=== PATIENT | male | born 1975 | race Caucasian/White ===

== ENCOUNTER 2021-06-16 09:39 | Outpatient (CLI) | payer BC, SELFPAY ==
--- NOTE | 2021-06-16 09:47 | ECG_ITS ---
Measurements Intervals [place] Rate: 61 P: 51 [place]: 165 QRS: -7 QRSD: 104 T: 20 QT: 381 QTc: 386 Interpretive Statements SINUS RHYTHM WITH SINUS ARRHYTHMIA INCOMPLETE RIGHT BUNDLE BRANCH BLOCK BORDERLINE ECG Electronically Signed On 06-16-2021 16:36:13 MENTAL RETARDATION AIDE by Ian Briscoe D.O.
== END 2021-06-16 09:40 | disposition home or self-care (01) ==
LOC: ANHSURGERY 09:43
PROVIDERS: PCP Family Medicine; Visit Provider Surgery
DX: Z01.810 Encounter for preprocedural cardiovascular examination (principal); E78.00 Pure hypercholesterolemia, unspecified; I45.10 Unspecified right bundle-branch block
CPT/HCPCS: 93005

== ENCOUNTER 2021-06-21 00:17 | Day surgery (SDC) | payer BC, SELFPAY ==
[2021-06-13 16:47] VITALS: BMI 33.3
--- NOTE | 2021-06-13 17:02 | SUR.PREOP ---
Report to the Outpatient Waiting Room, entrance under the green pavilion located off [facility], at time ___1100____ on date 06/21/2021. OR Time: ____1300____. - You and your visitor will be asked a series of questions to screen for COVID 19 for your protection. - A mask is required within the hospital. - Only one visitor is allowed at this time. Patient visitors will be guided where to wait when not with patient. Preoperative COVID Testing Requirements: No COVID Test needed if: (proof is required; if not received patient will have Rapid Test prior to entry) - Patient has received COVID Vaccine at least 14 days prior to procedure date or - Patient has positive COVID test result within last 90 days of surgery date. COVID Test needed if above criteria is not met If not COVID vaccinated a COVID test must be conducted within 72 hours of surgery and patient is asked to isolate self from time of testing until procedure. You will go to the [facility] Testing [facility] for your COVID testing. The [employer] [facility] Testing site is located at the corner of [address] [facility]. You will only be called if COVID results are positive and your surgeon may reschedule your elective surgery date. Patients may have clear liquids (water, carbonated beverages, clear teas, apple juice) until 3 hours prior to surgery (1000) with a maximum of 20 ounces. - No food from midnight until time of surgery - Infants may have breast milk until 4 hours before surgery, formula 6 hours prior to surgery. - Children will be allowed to drink immediately following surgery. If applicable, please bring a bottle or sippy cup to assist with drinking. Juice, water, soda, and popsicles are readily available. For infants on formula, please bring formula the day of surgery. Pacifiers are allowed. Take the following medications with a SIP of water the morning of surgery: NA Medications to discontinue per physician: Follow guidelines from Dr. Johns for Aspirin 81MG. Date to take last dose: 06/18/2021 HOLD multivitamin Please no make-up, nail luxembourger, hairspray, perfume, deodorant, or body powder the day of surgery. No jewelry (including any body piercings) or valuables the day of surgery, leave them at home. Please take a shower or bath the night before, or the morning of, surgery with an antibacterial soap-HIBICLENS. Wear comfortable, loose fitting clothing. Children are encouraged to wear pajamas. - Jewelry must be removed prior to entering the operating room. Rings and piercings that are not removed may be cut off. - The hospital will not accept responsibility for valuables. - Please leave all valuables, including medications, at home the day of surgery. If you are going home after surgery, a licensed frontload driver must drive you home. - NO public transportation without another adult. - We recommend that an adult stay with you for 24 hours following discharge. - We also recommend that you do not drive, make important decision, drink alcoholic beverages, or take any drugs that were not prescribed by your health care provider for at least 24 hours after your discharge time. For Pediatric surgeries, we recommend two adults accompany the child home (only one inside the building at this time). Follow any additional instructions given to you from your surgeon. Telephone instructions given to ____patient and asked if any additional questions and then verbalized understanding. Patient advised to call surgeon office or pre surgery nurse liaison [phone] if any additional questions.
[2021-06-21 10:56] VITALS: BP 123/78; PULSE 69; RESP 20; TEMP 36.7; O2SAT 100
[2021-06-21] MEDS: LACTATED RINGERS 1,000 ML 30 ML IV CONT (11:20)
[2021-06-21] MEDS: ACETAMINOPHEN 500 MG TABLET 1000 MG PO (11:42)
[2021-06-21] MEDS: KETOROLAC 15 MG/ML VIAL (*BKC) IV PUSH (11:44)
--- NOTE | 2021-06-21 11:46 | WPDANESEPPF ---
Anes - Initial Pre Proc Eval Procedure: Operation Date: 06/21/21 13:30 Proposed Procedures p Open Left Inguinal Hernia Repair with Mesh - Eloy Johns MD Date/Time: 06/21/21 11:46 Surgeon: Eloy Johns MD Pre Op Diagnosis: Left Ing Hernia Patient Data Age: 46 Gender: M Height: 1.75 m Weight: 102.2 kg Allergies Allergy/AdvReac Type Severity Reaction Status Date / Time Penicillins AdvReac Intermediate Abdominal Verified 06/21/21 11:10 Pain Home Medications Medication Instructions Recorded Confirmed Type aspirin 81 mg capsule 81 mg PO DAILY 05/30/21 06/13/21 History multivitamin 1 tablet PO DAILY 05/30/21 06/13/21 History rosuvastatin 40 mg tablet 40 mg PO DAILY 05/30/21 06/13/21 History Patient hx anesthesia problems: none Family hx anesthesia problems: none Results Review: All pre-operative results and documents have been reviewed as part of the pre-operative evaluation. [facility] Past Medical History Medical History (Updated 06/01/21 @ 08:43 by Hali Rivas) Asthma High cholesterol Kidney stones Surgical History Surgical History History of back surgery History of vasectomy Family History Family History Father Diabetes mellitus Mother Heart disease Brain cancer Grandparent Hypertension Social History Social History Smoking packs per day: 0.75 Smoking cigarettes per day: 15.0 Years smoked: 13 Smoking pack-years: 9.75 Smoking status: Former smoker Tobacco type: cigarettes Smokeless tobacco user: chewing tobacco and snuff Alcohol intake: never Substance use: never Living arrangements: with family Additional occupation/education comments: [employer] Spiritual care concerns: No Anes - Eval Final PreProcedure Day of Procedure 06/21/21 11:46 Patient weight: obese Heart: regular rate and rhythm Lungs: clear to auscultation Airway: Mallampati scale class II Neurological: alert and oriented Last oral intake: >/= 8 hours ASA classification: II Emergent: no Anesthetic plan: proceed Anesthesia type and monitoring: general LMA and standard monitoring Results Review: All pre-operative results and documents have been reviewed as part of the pre-operative evaluation. Informed Consent: The patient's anesthetic plan and its attendant risks and benefits were discussed with the patient/family/POA. Questions were solicited and answers provided to the satisfaction of the patient/family/POA.
--- NOTE | 2021-06-21 12:39 | SUR.PREOP ---
1225-PT AND VISITOR AWARE SURGEON DELAYS SELF WITH PREVIOUS SURGERY-MINIMUM 80 MINUTES.
--- NOTE | 2021-06-21 15:18 | SUR.PREOP ---
1340-SURGERY CANCELLED R/T SURGEON DELAY.
== END 2021-06-21 13:55 | disposition home or self-care (01) ==
PROVIDERS: PCP Family Medicine; Visit Provider Surgery
DX: K40.90 Unilateral inguinal hernia, without obstruction or gangrene, not specified as recurrent (principal); Z53.8 Procedure and treatment not carried out for other reasons
CPT/HCPCS: 99213; A9270; G0463; J1885; J7120

== ENCOUNTER 2021-06-23 03:00 | Day surgery (SDC) | payer BC, SELFPAY ==
--- NOTE | 2021-06-21 13:52 | PC.NURSE ---
Report to the Outpatient Waiting Room, entrance under the green pavilion located off [facility], at time __10:30AM on date _06/21/21 . OR Time: __12:30PM . - You and your visitor will be asked a series of questions to screen for COVID 19 for your protection. - A mask is required within the hospital. - Only one visitor is allowed at this time. Patient visitors will be guided where to wait when not with patient. Preoperative COVID Testing Requirements: No COVID Test needed if: (proof is required; if not received patient will have Rapid Test prior to entry) - Patient has received COVID Vaccine at least 14 days prior to procedure date or - Patient has positive COVID test result within last 90 days of surgery date. COVID Test needed if above criteria is not met If not COVID vaccinated a COVID test must be conducted within 72 hours of surgery and patient is asked to isolate self from time of testing until procedure. You will go to the [facility] for your COVID testing. The [facility] site is located at the corner of [address] from [facility]. You will only be called if COVID results are positive and your surgeon may reschedule your elective surgery date. Patients may have clear liquids (water, carbonated beverages, clear teas, apple juice) until 3 hours prior to surgery with a maximum of 20 ounces. - No food from midnight until time of surgery - Infants may have breast milk until 4 hours before surgery, infant formula 6 hours prior to surgery. - Children will be allowed to drink immediately following surgery. If applicable, please bring a bottle or sippy cup to assist with drinking. Juice, water, soda, and popsicles are readily available. For infants on formula, please bring formula the day of surgery. Pacifiers are allowed. Take the following medications with a SIP of water the morning of surgery: __NONE Medications to discontinue per physician ALL VITAMINS/SUPPLEMENTS 3 DAYS PRE-OP Date to take last dose Please no make-up, nail yi, hairspray, perfume, deodorant, or body powder the day of surgery. No jewelry (including any body piercings) or valuables the day of surgery, leave them at home. Please take a shower or bath the night before, or the morning of, surgery with an antibacterial soap. Wear comfortable, loose fitting clothing. Children are encouraged to wear pajamas. - Jewelry must be removed prior to entering the operating room. Rings and piercings that are not removed may be cut off. - The hospital will not accept responsibility for valuables. - Please leave all valuables, including medications, at home the day of surgery. If you are going home after surgery, a licensed goat driver must drive you home. - NO public transportation without another adult. - We recommend that an adult stay with you for 24 hours following discharge. - We also recommend that you do not drive, make important decision, drink alcoholic beverages, or take any drugs that were not prescribed by your health care provider for at least 24 hours after your discharge time. For Pediatric surgeries, we recommend two adults accompany the child home (only one inside the building at this time). Follow any additional instructions given to you from your surgeon. Telephone instructions given to __PATIENT and asked if any additional questions and then verbalized understanding. Patient advised to call surgeon office or pre surgery nurse liaison [phone] if any additional questions.
--- NOTE | 2021-06-21 13:58 | PC.NURSE ---
PATIENT CANCELED TODAY, 06/21/21, DATE/TIME CHANGE TO 06/23/21, 1230. CANCEL R/T OR DELAYS ON 06/21/21. NO CHANGE IN PMH. ALLERGIES AND MEDS CONFIRMED. PRE-OP INSTRUCTIONS GIVEN TO PT AND IN PERSON & IN WRITING, THEY RELAY UNDERSTANDING.
[2021-06-23] VITALS (8 sets, daily range): BP systolic 104–123; BP diastolic 63–79; PULSE 53–79; RESP 12–20; TEMP 36.3–36.6; O2SAT 94–99; BMI 33.3
[2021-06-23] MEDS: ACETAMINOPHEN 500 MG TABLET 1000 MG PO (11:08)
[2021-06-23] MEDS: LACTATED RINGERS 1,000 ML 30 ML IV CONT ×2 (11:15→14:52)
[2021-06-23] MEDS: KETOROLAC 15 MG/ML VIAL (*BKC) IV PUSH (11:25)
--- NOTE | 2021-06-23 11:56 | P.PNAN_ITS ---
Anes - Initial Pre Proc Eval Procedure: Operation Date: 06/23/21 12:30 Proposed Procedures p Open Left Inguinal Hernia Repair with Mesh - Eloy Johns MD Date/Time: 06/23/21 11:56 Surgeon: Eloy Johns MD Pre Op Diagnosis: left inguinal hernia Patient Data Age: 46 Gender: M Height: 1.75 m Weight: 102.2 kg Last Vital Signs Temp 97.8 F 06/23/21 10:29 Pulse 64 06/23/21 10:29 Resp 20 06/23/21 10:29 BP 116/79 06/23/21 10:29 Pulse Ox 99 06/23/21 10:29 Allergies Allergy/AdvReac Type Severity Reaction Status Date / Time Penicillins AdvReac Intermediate Abdominal Verified 06/21/21 11:10 Pain Home Medications Medication Instructions Recorded Confirmed Type aspirin 81 mg capsule 81 mg PO DAILY 05/30/21 06/23/21 History multivitamin 1 tablet PO DAILY 05/30/21 06/23/21 History rosuvastatin 40 mg tablet 40 mg PO DAILY 05/30/21 06/23/21 History Patient hx anesthesia problems: none Family hx anesthesia problems: none Results Review: All pre-operative results and documents have been reviewed as part of the pre-operative evaluation. [facility] Past Medical History Medical History (Updated 06/01/21 @ 08:43 by Hali Rivas) Asthma High cholesterol Kidney stones Surgical History Surgical History History of back surgery History of vasectomy Family History Family History Father Diabetes mellitus Mother Heart disease Brain cancer Grandparent Hypertension Social History Social History Smoking packs per day: 0.75 Smoking cigarettes per day: 15.0 Years smoked: 13 Smoking pack-years: 9.75 Smoking status: Former smoker Tobacco type: cigarettes Smokeless tobacco user: chewing tobacco and snuff Alcohol intake: never Substance use: never Additional occupation/education comments: [employer] Spiritual care concerns: No Anes - Eval Final PreProcedure Day of Procedure 06/23/21 11:56 Patient weight: obese Heart: regular rate and rhythm Lungs: clear to auscultation Airway: Mallampati scale class II Neurological: alert and oriented Last oral intake: >/= 8 hours ASA classification: II Emergent: no Anesthetic plan: proceed Anesthesia type and monitoring: general LMA and standard monitoring Results Review: All pre-operative results and documents have been reviewed as part of the pre-operative evaluation. Informed Consent: The patient's anesthetic plan and its attendant risks and benefits were discussed with the patient/family/POA. Questions were solicited and answers provided to the satisfaction of the patient/family/POA.
--- NOTE | 2021-06-23 11:59 | WPDANESEPPF ---
Anes - Initial Pre Proc Eval Procedure: Operation Date: 06/23/21 12:30 Proposed Procedures p Open Left Inguinal Hernia Repair with Mesh - Eloy Johns MD Date/Time: 06/23/21 11:59 Surgeon: Eloy Johns MD Pre Op Diagnosis: left inguinal hernia Patient Data Age: 46 Gender: M Height: 1.75 m Weight: 102.2 kg Last Vital Signs Temp 97.8 F 06/23/21 10:29 Pulse 64 06/23/21 10:29 Resp 20 06/23/21 10:29 BP 116/79 06/23/21 10:29 Pulse Ox 99 06/23/21 10:29 Allergies Allergy/AdvReac Type Severity Reaction Status Date / Time Penicillins AdvReac Intermediate Abdominal Verified 06/21/21 11:10 Pain Home Medications Medication Instructions Recorded Confirmed Type aspirin 81 mg capsule 81 mg PO DAILY 05/30/21 06/23/21 History multivitamin 1 tablet PO DAILY 05/30/21 06/23/21 History rosuvastatin 40 mg tablet 40 mg PO DAILY 05/30/21 06/23/21 History Patient hx anesthesia problems: none Family hx anesthesia problems: none Results Review: All pre-operative results and documents have been reviewed as part of the pre-operative evaluation. [facility] Past Medical History Medical History (Updated 06/01/21 @ 08:43 by Hali Rivas) Asthma High cholesterol Kidney stones Surgical History Surgical History History of back surgery History of vasectomy Family History Family History Father Diabetes mellitus Mother Heart disease Brain cancer Grandparent Hypertension Social History Social History Smoking packs per day: 0.75 Smoking cigarettes per day: 15.0 Years smoked: 13 Smoking pack-years: 9.75 Smoking status: Former smoker Tobacco type: cigarettes Smokeless tobacco user: chewing tobacco and snuff Alcohol intake: never Substance use: never Additional occupation/education comments: [employer] Spiritual care concerns: No Anes - Eval Final PreProcedure Day of Procedure 06/23/21 11:59 Patient weight: obese Heart: regular rate and rhythm Lungs: clear to auscultation Airway: Mallampati scale class II Neurological: alert and oriented Last oral intake: >/= 8 hours ASA classification: II Emergent: no Anesthetic plan: proceed Anesthesia type and monitoring: general LMA and standard monitoring Results Review: All pre-operative results and documents have been reviewed as part of the pre-operative evaluation. Informed Consent: The patient's anesthetic plan and its attendant risks and benefits were discussed with the patient/family/POA. Questions were solicited and answers provided to the satisfaction of the patient/family/POA.
--- NOTE | 2021-06-23 12:29 | WPDHPUPDATE1 ---
History and Physical Update Update Date/Time: 06/23/21 12:29 History and Physical has been reviewed, including an updated exam of the patient. There are NO changes in the patient's condition. Risks, benefits, and alternatives have been discussed and questions answered. Patient agrees to proceed with procedure.
[2021-06-23] MEDS: ceFAZolin 2 GM/D5W 50 ML 2 GM/50 ML BAG IVPB (12:38)
[2021-06-23] MEDS: BUPIVACAINE HCL 0.5% PF 30 ML VIAL INFILTRATE (13:15)
[2021-06-23] MEDS: LIDO 1%/EPINEPHRINE 1:100,000 50 ML VIAL INFILTRATE (13:16)
--- NOTE | 2021-06-23 14:49 | W.PM.PROC2 ---
Procedure Note - Detailed Date of Procedure 06/23/21 Pre-op Diagnosis left inguinal hernia Post-op Diagnosis other (Left direct inguinal hernia) Procedure Performed Left inguinal hernia repair with mesh (open) Surgeon Eloy Johns MD [employer] DACIA Arenas, OR 1st assist Anesthesia general Indications Please see preop history and physical. Patient has had an increasing bulge in the left groin for 1-2 years. Over the last year it has gotten significantly larger began to give him significant pain with exercise or heavy lifting. Findings Careful exploration at the anterior medial border of the cord structures at the internal ring revealed no obvious indirect inguinal hernia sac. He did have a regular wide based defect in-hospital ox triangle consistent with a direct left inguinal hernia. Description of Procedure The patient was placed in the supine position on the operating room table. After induction of adequate general LMA anesthesia by [facility] Anesthesia staff, we carefully prepped the entire abdomen and scrotum with chlorhexidine. One sterile towel was placed underneath the scrotum. Four towels were placed around the left lower quadrant. Following this, a time-out was performed with the surgical team and the patient's surgical procedure and site was confirmed. We then carefully outlined a curvilinear incision in the left groin area and a curvilinear incision was made after introducing a mixture of local anesthetic, using 0.5% Marcaine plain and 1% Xylocaine with epinephrine as both an ilioinguinal nerve block and at the incision site with a 25 gauge needle. Following this, I carefully made the incision, and carried it down through the subcutaneous tissue. Marcelo's fascia was incised and then we identified the external oblique aponeurosis and the external ring. Following this, the same mixture of local anesthetic was infiltrated underneath the external oblique aponeurosis and this was split in the direction of it's fibers with a #15 blade initially and then using metzenbaum scissors. I then opened the external oblique through the external ring and incised this somewhat posteriorly and superiorly exposing the ilioinguinal nerve. This nerve was carefully preserved laterally and then I carefully and meticulously dissected out the cord structures at the level of the pubic tubercle. Eventually because it appeared that the nerve would be laying right on a long course of the mesh I decided to sacrifice it and divided it and took out a segment of it. This was not sent to pathology. (I will inform patient's significant other and the patient at the office about the numbness possibly associated with this). I then surrounded these structures at the level of pubic tubercle and placed a [place] drain around them. I then carefully search for an indirect inguinal hernia sac however searching up and down the cord structures at the anterior medial border up to and into the internal ring I did not find any indirect inguinal hernia sac. Once this was completed careful examination of the inguinal floor showed a triangular defect starting at the pubic bone that extended at least 4-5 cm cephalad toward the indirect internal ring that was quite weak. The edge of the internal oblique seemed to be well from Steve's ligament. (patient had a direct inguinal hernia). Following this, we took care to recreate an appropriate inguinal canal. This was done by carefully dissecting from the internal ring down to the pubic bone, dissecting away any cremasteric tissue. A running suture of 0 Prolene was placed in the pubic tubercle and run up to the internal ring, approximating the Transversalis fascia to the ilioinguinal ligament. Once this was done, we then opened the rectangular piece of Prolene mesh and it was then cut into a 12 x 5 cm elliptical sheet with a keyhole in it and I then positioned it nicely over Hasselbach's triangle. One suture of
[2021-06-23] MEDS: SCOPOLAMINE 1.5 MG PATCH TRANSDERM (15:27)
[2021-06-23] MEDS: diphenhydrAMINE HCl INJ 50 MG/ML VIAL 25 MG IV PUSH (15:27)
[2021-06-23] MEDS: oxyCODONE HCL (*CRX) 5 MG TAB IR PO (16:20)
== END 2021-06-23 16:55 | disposition home or self-care (01) ==
PROVIDERS: PCP Family Medicine; Visit Provider Surgery
PROC: (CPT 49505; principal; 2021-06-23 12:30)
DX: K40.90 Unilateral inguinal hernia, without obstruction or gangrene, not specified as recurrent (principal); E78.00 Pure hypercholesterolemia, unspecified; E66.9 Obesity, unspecified; Z68.33 Body mass index [BMI] 33.0-33.9, adult; Z79.82 Long term (current) use of aspirin; F17.220 Nicotine dependence, chewing tobacco, uncomplicated
CPT/HCPCS: 49505; 93005; A9270; C1781; J0690; J1100; J1200; J1885; J2250; J2405; J2704; J3010; J7120

== ENCOUNTER → 2023-01-26 14:44 | Outpatient (CLI) | payer BC, SELFPAY ==
--- NOTE | ~2023-01-26 | US_ITS ---
EXAMINATION: US soft tissue LE LT DATE: 01/26/2023 15:25 INDICATION: Left posterior fossa mass. TECHNIQUE: Multiple grayscale and Doppler ultrasound images of the left lower limb were obtained. COMPARISON: None FINDINGS: In the popliteal fossa, there is a 3.5 x 2.1 x 1.7 cm hypoechoic mass. IMPRESSION: 1. 3.5 cm mass in the popliteal fossa, which may be benign or malignant. Ultrasound-guided core needl e biopsy is recommended. Reviewed, dictated and finalized at location A. IMPRESSION: 1. 3.5 cm mass in the popliteal fossa, which may be benign or malignant. Ultras ound-guided core needle biopsy is recommended.
--- NOTE | ~2023-01-26 | XR_ITS ---
XR cervical spine 4-5V DATE: 01/26/2023 15:06 INDICATION: Shoulder pain TECHNIQUE: AP, open-mouth, lateral, swimmer's and bilateral oblique views COMPARISON: None FINDINGS: C1 and C2 are normally aligned and the odontoid process is intact. Mild loss of interspace height and mild spurring at C5-6 and C6-7 consistent with degenerative disc d isease. There is no significant bony encroachment upon the neural foramina on either side. No fracture or dislocation or locked facet or prevertebral soft tissue swelling. IMPRESSION: Mild degenerative disc disease at C5-6 and C6-7 Reviewed, dictated and finalized at location B.
== END ==
PROVIDERS: PCP Family Medicine; Visit Provider Family Medicine
DX: E78.5 Hyperlipidemia, unspecified (principal); J45.909 Unspecified asthma, uncomplicated; M71.22 Synovial cyst of popliteal space [Baker], left knee; Z12.11 Encounter for screening for malignant neoplasm of colon; M25.511 Pain in right shoulder; M25.512 Pain in left shoulder; R20.2 Paresthesia of skin; M50.323 Other cervical disc degeneration at C6-C7 level
CPT/HCPCS: 72050; 76882

== ENCOUNTER → 2023-02-09 10:16 | Outpatient (CLI) | payer BC, SELFPAY ==
--- NOTE | ~2023-02-09 | MR_ITS ---
MRI of the cervical spine Clinical History: Degenerative disc disease Technique: Axial T2-weighted and gradient images, and sagittal T1-weighted, T2-weighted, and STIR nick ges were acquired. Findings: There is no fracture or subluxation of cervical spine. Vertebral bodies maintain normal hei ght and alignment. Intraosseous hemangioma noted at the C7 vertebral body. No other bone marrow signa l reality seen. At C2-C3, there is no disc bulge or herniation. No spinal canal stenosis, cord compression, or neural foraminal narrowing. At C3-C4, there is no disc bulge or herniation. No spinal canal stenosis, cord compression, or neural foraminal narrowing. At C4-C5, there is no disc bulge or herniation. No spinal canal stenosis, cord compression, or neural foraminal narrowing. At C5-C6, there is disc osteophyte complex, most prominent at the right paracentral to right foramina l region, with probable mild right neural foraminal compromise. There is mild flattening the ventral cord at the right side. Left neural foramen preserved. At C6-C7, there is no disc bulge or herniation. No spinal canal stenosis, cord compression, or neural foraminal narrowing. No abnormal signal seen in the spinal cord. Paravertebral soft tissues are unremarkable. Impression: Right paracentral to right foraminal disc osteophyte complex at C5-C6, which results in mild flatteni ng the ventral cord at the right side, and probable right neural foraminal compromise. Reviewed, dictated and finalized at [facility]. Impression: Right paracentral to right foraminal disc osteophyte complex at C5-C6, which re sults in mild flattening the ventral cord at the right side, and probable right neural foraminal compromise.
== END ==
PROVIDERS: PCP Family Medicine; Visit Provider Family Medicine
DX: M50.30 Other cervical disc degeneration, unspecified cervical region (principal); M25.78 Osteophyte, vertebrae
CPT/HCPCS: 72141

== ENCOUNTER 2023-09-10 12:52 | Emergency (ER) | payer BC, SELFPAY ==
--- NOTE | ~2023-09-10 | XR_ITS ---
EXAMINATION: XR abdomen/kub 1V DATE: 09/10/2023 13:39 INDICATION: Left kidney stone. TECHNIQUE: A supine view of the abdomen on 2 radiographs was obtained. COMPARISON: Abdomen radiographs 10/04/2018, CT abdomen and pelvis 10/01/2018 FINDINGS: There are no dilated loops of bowel. The kidneys are obscured by bowel. There are approxima tely 3 stones in right kidney measuring up to 3 mm. A 9 mm density overlying left kidney may be a sto ne. There is a 6 mm stone in proximal left ureter at L4. There is a phlebolith in left pelvis. IMPRESSION: 1. 6 mm stone in proximal left ureter. 2. Small right kidney stones. Possible left kidney stone. Reviewed, dictated and finalized at location E. [employer]
[2023-09-10 12:58] VITALS: BP 133/87; PULSE 72; RESP 20; TEMP 36.2; O2SAT 98
--- NOTE | 2023-09-10 13:32 | ED.GENADULT ---
HPI - General Adult General Chief complaint: Recheck/Abnormal Lab/Rx Stated complaint: kidney issues Time Seen by Provider: 09/10/23 13:08 History of Present Illness HPI narrative: 48-year-old male with history of kidney stones presenting to the emergency department for evaluation of left flank pain that started on Sunday. Patient states the pain waxed and waned over the course of the week but did significantly worsened on Sunday. Patient felt that on Sunday he was running a low-grade fever. Patient does have intermittent nausea and vomiting. Patient did have follow-up with his primary care physician and was started on Cipro, Flomax and was provided ketorolac for pain control. Patient states over the last few weeks he has passed multiple smaller kidney stones. Patient did have previous follow-up with Urology and he thinks was Dr. Capone. Patient had outpatient imaging that showed a 7 mm ureteral calculi. Related Data Home Medications Medication Instructions Recorded Confirmed aspirin 81 mg capsule 81 mg PO DAILY 05/30/21 08/04/21 multivitamin 1 tablet PO DAILY 05/30/21 08/04/21 rosuvastatin 40 mg tablet 40 mg PO DAILY 05/30/21 08/04/21 Allergies Allergy/AdvReac Type Severity Reaction Status Date / Time Penicillins AdvReac Intermediate Abdominal Verified 09/10/23 13:00 Pain Review of Systems Review of Systems: All systems reviewed & are unremarkable except as noted in HPI and below PMFSH Past Medical History Medical History Asthma High cholesterol Kidney stones Surgical History Surgical History H/O inguinal hernia repair w/ mesh 06/21/21 History of back surgery History of vasectomy Family History Family History Father Diabetes mellitus Mother Heart disease Brain cancer Grandparent Hypertension Social History Social History Smoking packs per day: 0.75 Smoking cigarettes per day: 15.0 Years smoked: 13 Smoking pack-years: 9.75 Smoking status: Former smoker Tobacco type: cigarettes Smokeless tobacco user: chewing tobacco and snuff Alcohol intake: never Substance use: never Living arrangements: with family Occupation/Education: occupation Additional occupation/education comments: [employer] Spiritual care concerns: No Exam Narrative: APPEARANCE: No acute distress HEAD: normocephalic, atraumatic. EYES: PERRLA/EOMI, conjunctivae clear. NOSE: Normal no drainage NECK: Supple. No adenopathy, no masses. RESPIRATORY: Airway patent, respirations nonlabored. Clear to auscultation bilaterally, no rales, rhonchi, wheezing. CARDIOVASCULAR: Regular rate and rhythm without murmurs rubs or gallops. ABDOMINAL: Soft, nontender, nondistended, normal bowel sounds MUSCULOSKELETAL: Moves all extremities. Strength/ROM intact, No edema, No calf tenderness. NEURO: Alert. Cranial nerves II through XII intact. Good gait. Good coordination SKIN: Warm, dry. Normal Color Course Course Emergency Course: Patient felt improved with treatment and patient was discharged to home with follow-up with Urology Vital Signs Vital signs: Vital Signs Temperature 97.2 F L 09/10/23 12:58 Pulse Rate 72 09/10/23 12:58 Respiratory Rate 20 09/10/23 12:58 Blood Pressure 133/87 09/10/23 12:58 Pulse Oximetry 98 09/10/23 12:58 Oxygen Delivery Room Air 09/10/23 12:58 Temperature 97.9 F 09/10/23 15:18 Pulse Rate 66 09/10/23 15:18 Respiratory Rate 18 09/10/23 15:18 Blood Pressure 156/92 H 09/10/23 15:18 Pulse Oximetry 99 09/10/23 15:18 Oxygen Delivery Room Air 09/10/23 12:58 Medical Decision Making MDM Narrative Medical decision making narrative: 48-year-old male presenting to the ED for evaluation of his left flank pain. KUB was ordere
[2023-09-10 13:53] LABS: Appearance Urine Clear (Clear); Bacteria Urine None Seen /hpf; Bilirubin Urine Negative (Negative); Color Urine Yellow (Yellow); Glucose Urine UA Negative (Negative); Ketones Urine Negative (Negative); Leukocyte Esterase Ur Negative LEU/UL (Negative); Nitrate Urine Negative (Negative); Non Pathogenic Casts 0-2; Protein Urine Negative (Negative); Specific Grav Ur 1.022 (1.001-1.035); Squamous Epithelial Cell Urine None seen /hpf (Few); WBC Urine 0-5 /hpf; pH Urine 5.5 (5.0-9.0)
[2023-09-10 13:54] LABS: Basophils Absolute Auto 0.1 K/mm3 (0.0-0.1); Basophils Percent Auto 0.5 % (0.2-1.2); Eosinophils Absolute Auto 0.2 K/mm3 (0-0.3); Eosinophils Percent Auto 2.2 % (0-4.4); Hematocrit 44.3 % (42.0-52.0); Hemoglobin 14.4 g/dL (14.0-18.0); Immature Granulocyte Absolute 0.04 K/mm3 (0.00-0.031); Immature Granulocyte Percent A 0.4 % (0-0.5); Lymphocytes Absolute Auto 2.39 K/mm3 (0.9-3.2); Lymphocytes Percent Auto 21.5 % (18.3-44.2); Mean Corpuscular HGB Conc 32.5 g/dl (32-36); Mean Corpuscular Hemoglobin 28.3 pg (26-34); Mean Corpuscular Volume 87.2 fl (80-100); Mean Platelet Volume 9.1 fl (7.4-10.4); Monocytes Absolute Auto 1.2 K/mm3 (0.1-0.6); Monocytes Percent Auto 10.4 % (2.6-8.5); Neutrophils Absolute Auto 7.2 K/mm3 (1.3-6.7); Platelet Count Result 237 k/mm3 (150-375); Red Blood Count 5.08 M/mm3 (4.6-6.20); White Blood Count 11.1 K/mm3 (4.5-10.0)
[2023-09-10 13:56] LABS: Add Urine Microscopic? YES
[2023-09-10 14:09] LABS: Alanine Aminotransferase 38 U/L (6-50); Alkaline Phosphatase 73 U/L (38-126); Anion Gap 7 mmol/L (8-16); Aspartate Amino Transferase 25 U/L (17-59); Bilirubin,Total 0.7 mg/dL (0.2-1.3); Blood Urea Nitrogen 18 mg/dL (9-20); Calcium 9.1 mg/dL (8.4-10.2); Carbon Dioxide 25 mmol/L (22-30); Chloride 106 mmol/L (98-107); Estimated CRCL calculation 54 ml/min; Estimated Glomerular Filt Rate 38; Glucose 100 mg/dL (65-110); Potassium 3.6 mmol/L (3.4-5.0); Sodium 138 mmol/L (137-145)
[2023-09-10 14:32] VITALS: BP 136/70; PULSE 67; RESP 15; O2SAT 100
[2023-09-10] MEDS: SODIUM CHLORIDE 0.9% IV 1,000 ML 999 ML IV CONT (14:32)
[2023-09-10] MEDS: HYDROmorphone HCL INJ (*CRX) 1 MG/ML SYR 0.5 MG IV PUSH (15:03)
[2023-09-10] MEDS: HYDROcodone/acetaminophen (*CRX) 5-325 MG TABLET 1 TAB PO (15:03)
[2023-09-10 15:07] VITALS: BP 131/78; PULSE 61; RESP 17; O2SAT 100
[2023-09-10 15:18] VITALS: BP 156/92; PULSE 66; RESP 18; TEMP 36.6; O2SAT 99
== END 2023-09-10 15:19 | disposition home or self-care (01) ==
PROVIDERS: Emergency Provider Emergency Medicine; PCP Family Medicine
DX: N20.1 Calculus of ureter (principal); E78.00 Pure hypercholesterolemia, unspecified; J45.909 Unspecified asthma, uncomplicated; Z87.442 Personal history of urinary calculi; Z87.891 Personal history of nicotine dependence
CPT/HCPCS: 36415; 74018; 80053; 81001; 85025; 96374; 99284; A9270; J1170; J7030

== ENCOUNTER 2023-09-21 09:56 | Outpatient (CLI) | payer BC, SELFPAY ==
--- NOTE | ~2023-09-21 | XR_ITS ---
EXAMINATION: XR abdomen/kub 1V DATE: 09/21/2023 11:05 INDICATION: Left ureteral stone. TECHNIQUE: A supine view of the abdomen on 2 radiographs was obtained. COMPARISON: Abdomen radiographs 09/10/2023, CT abdomen and pelvis 10/01/2018 FINDINGS: There are no dilated loops of bowel. There are 3 stones in right kidney measuring up to 2 m m. IMPRESSION: 1. Small right kidney stones. Reviewed, dictated and finalized at location A.
--- NOTE | ~2023-09-21 | US_ITS ---
Renal-Bladder ultrasound Clinical History: Left ureteral stone Technique: Real-time sonographic imaging of the kidneys and urinary bladder was performed. Findings: The right kidney measures 10.5 cm in length and the left kidney measures 11.1 cm. There is no hydronephrosis. 1.9 cm right midpole renal stone present.. Renal cortical echogenicity is within n ormal limits. No renal mass lesion is identified. The urinary bladder is moderately distended at the time of this exam. No intraluminal echoes are iden tified. No abnormal wall thickening is seen. Impression: No hydronephrosis. 1.9 cm right midpole nonobstructing stone. Reviewed, dictated and finalized at location M. Impression: No hydronephrosis. 1.9 cm right midpole nonobstructing stone.
== END 2023-09-21 09:57 ==
PROVIDERS: PCP Urology; Visit Provider Urology
DX: N20.2 Calculus of kidney with calculus of ureter (principal)
CPT/HCPCS: 74018; 76770

== ENCOUNTER 2024-12-08 15:27 | Outpatient (CLI) | payer BC, SELFPAY ==
--- NOTE | ~2024-12-08 | XR_ITS ---
Supine and upright views of the abdomen Clinical history: Renal stone COMPARISON: 09/21/2023 Findings: Bowel gas pattern is nonspecific. No evidence for obstruction or free air. Several small ri ght renal stones are present. No definite left renal stones seen.. Osseous structures are intact. Impression: Small right renal stones. Reviewed, dictated and finalized at [facility]. Impression: Small right renal stones.
== END 2024-12-08 15:28 | disposition home or self-care (01) ==
PROVIDERS: PCP Urology; Visit Provider Urology
DX: N20.0 Calculus of kidney (principal)
CPT/HCPCS: 74018